=== PATIENT | male | born 1960 | race Hispanic/Latino ===

== ENCOUNTER 2024-05-12 09:20 | Emergency (ER) | payer OTHER, SELFPAY ==
[2024-05-12 09:33] VITALS: BP 130/85
--- NOTE | 2024-05-12 10:13 | ED.GENMED ---
History of Present Illness
General
Chief Complaint: Cold/Flu/URI Symptoms
Time Seen by Provider: 05/12/24 10:03
History of Present Illness
History of Present Illness:
Patient is a 64-year male with history of hypertension presenting to the emergency department URI symptoms. Patient states for the past few weeks she has had cough congestion runny nose as well as body aches. No fevers but some chills. No chest
pain. No difficulty breathing. No leg swelling or hemoptysis. No recent sick contacts. Has been taking Tylenol with some relief.
Past History
Past History
ED Past Medical History: HTN
ED Past Surgical History: Negative Cardiac
Social History
Tobacco: Non-smoker
Alcohol: None
Drug: None
Personal:
Living: with family
Employment: Employed
Family History
Family History: Hypertension
Phy Exam
Physical Exam
Physical Exam:
GENERAL: in no acute distress
HEENT: normocephalic, extraocular movements intact, congested, moist oral mucosa
NECK: normal inspection
RESPIRATORY: no respiratory distress, diminished breath sounds in the left lower lobe otherwise clear
CARDIOVASCULAR: regular rate and rhythm
ABDOMEN/: soft, non-distended, non-tender to palpation, no rebound or guarding
EXTREMITIES: non-tender, no edema/swelling
NEUROLOGIC: awake and alert, moves all extremities
SKIN: warm
Course
Orders/Labs/Results
Orders:
Orders
05/12/24 09:37
COVID-19 Antigen Urgent
Source: Nasal Swab
Influenza A+B Rapid Molecular Urgent
NAMITA Source: Nasal Swab
Specimen Description:
05/12/24 10:13
CR Chest - 2 Views Urgent
Comment:
Reason For Exam: cough
05/12/24 10:15
Ibuprofen [Motrin] 800 mg PO NOW STA
Vital Signs
Initial and Last Documented VS:
Initial Vital Signs
Temp Pulse Resp BP Pulse Ox
99.9 F 93 18 130/85 98
05/12/24 09:33 05/12/24 09:33 05/12/24 09:33 05/12/24 09:33 05/12/24 09:33
Last Documented Vital Signs
Temp Pulse Resp BP Pulse Ox
99.9 F 85 18 110/78 95
05/12/24 09:33 05/12/24 10:32 05/12/24 10:32 05/12/24 10:32 05/12/24 10:32
MDM/Problems Addressed
Differential Diagnosis Includes:
Patient is a 64-year-old man presenting to the emergency department with URI symptoms for the past few weeks. Vitals are notable for a temperature of 99.9 and exam does show diminished breath sounds in the left lower lobe. Concern for pneumonia
versus viral upper respiratory. Will check COVID flu and obtain chest x-ray. Will symptomatically treat with Motrin.
*Critical Care Note
Total Time (30-74mins, 75-104mins- exclusive of procedures): Not Applicable
Update Note
Update Note:
Patient is flu be positive. Chest x-ray per my interpretation with no obvious infiltrate. Will discharge patient with outpatient follow-up. Education provided on supportive measures.
ED Attending Note
-
Portions of this chart may have been created with voice recognition software.� Occasional wrong word or��sound alike� substitutions may have occurred due to the inherent limitations of voice recognition software.
Discharge Plan
Departure
Patient Disposition: Home (Routine Discharge)
Date of Disposition: 05/12/24
Time of Disposition: 11:00
Patient with high blood pressure during this ER visit?: No
Discharge Problem:
Influenza
Instructions: Flu in adults - ED discharge instructions
Prescriptions:
No Action
losartan 50 MG tablet
50 mg PO DAILY
meclizine 25 MG tablet
25 mg PO Q8HPRN PRN (Reason: nausea or vertigo) Qty: 15 0RF
meclizine 25 MG tablet
25 mg PO Q8HPRN PRN (Reason: nausea or vertigo) Qty: 20 0RF
ibuprofen 600 MG tablet
600 mg PO Q6HPRN PRN (Reason: pain) Qty: 20 0RF
Referrals:
[facility] [Outside]
NONE,* [Family Provider] -
Activity Restrictions/Additional Instructions:
You were seen in the Emergency Department today for the flu. Please use Tylenol Motrin and other supportive measures such as steam or hot showers to help your symptoms.
We would like for you to follow up with your primary care physician for further evaluation. If you experience fever, worsening of your symptoms, or develop any other new or concerning symptoms, please return to the Emergency Department immediately.
Please see the attached sheet for additional information.
Interventions
Interventions:
*Risk Screen - Suicide Last Done: 05/12/24 09:33
*General Assessment Last Done: 05/12/24 09:33
*Neglect/Abuse Screening Last Done: 05/12/24 09:33
*ED COVID-19 Vaccine History Last Done: 05/12/24 09:33
ED- Pulmonary Assessment Last Done: 05/12/24 10:31
Discharge Date and Time
Print Language: HEBREW
[2024-05-12 10:17] LABS: COVID-19 Antigen Negative (Negative)
[2024-05-12] MEDS: MOTRIN 800 MG PO (10:29)
[2024-05-12 10:32] VITALS: BP 110/78
[2024-05-12 11:31] VITALS: BP 103/75
== END 2024-05-12 11:32 | disposition home or self-care (01) ==
LOC: EMR 09:20
PROVIDERS: Emergency Medicine; EMERGENCY PHYSICIAN Student in an Organized Health Care Education/Training Program
DX: J11.1 Influenza due to unidentified influenza virus with other respiratory manifestations (principal); I10 Essential (primary) hypertension; Z82.49 Family history of ischemic heart disease and other diseases of the circulatory system
CPT/HCPCS: 99283; 71046; 87502; 87811